=== PATIENT | female | born 1950 | race Caucasian/White ===

== ENCOUNTER 2017-01-08 08:42 | Inpatient (IN) | payer OTHER, MEDICARE ==
[~2017-01-08] VITALS: Ht 165.1 cm; Wt 110.6 kg
[2017-01-08 02:19] VITALS: PULSE 89
[2017-01-08 09:01] VITALS: BP 126/58; PULSE 97; RESP 17; TEMP 98.8; O2SAT 94
[2017-01-08] MEDS ORDERED: LEVO175T2 PO (09:18)
[2017-01-08] MEDS ORDERED: ACTO45TA15 PO (09:18)
[2017-01-08] MEDS ORDERED: SIMV20TA PO (09:18)
[2017-01-08] MEDS ORDERED: GLIP10TA6 PO (09:18)
--- NOTE | 2017-01-08 09:39 | PD ---
HPI . . Chief Complaint: General Weakness Time Seen by Provider: 09:27 Travel History International Travel<30 days: No Contact w/Intl Traveler<30days: No Traveled to known affect area: No History of Present Illness HPI 66 yo f presents to the ED with a cc of weakness. She states that she fell yesterday when trying to go to dialysis. She has a history of ESRD and goes to dialysis T,R,S. She states that her fall yesterday was controlled and she had no head injury or loss of consciousness. She came in to the Ed today because she was unable to get out of her recliner this morning. No CP, SOB. No headache , N/V/D. She does still produce urine and has not noticed burning, frequency or discharge Allergies-Medications (Allergen,Severity, Reaction): Coded Allergies: Penicillins (Verified Allergy, Intermediate, Hives, 01/08/17) Reported Meds & Prescriptions Reported Meds & Active Scripts Active Reported Simvastatin 20 Mg Tab 20 Mg PO DAILY Actos (Pioglitazone HCl) 45 Mg Tab 45 Mg PO DAILY Glipizide 10 Mg Tab 10 Mg PO BIDAC Take 30 minutes before a meal Levothyroxine (Levothyroxine Sodium) 175 Mcg Tab 175 Mcg PO DAILY Review of Systems Except as stated in HPI: all other systems reviewed are Neg HENT: Positive: Lightheadedness Cardiovascular: Positive: Edema Genitourinary: Positive: Urgency, Frequency, Dysuria Musculoskeletal: Positive: Weakness, Edema Neurologic: Positive: Weakness Physical Exam Narrative GENERAL: patient is laying in bed in no acute distress SKIN: Warm and dry. HEAD: Atraumatic. Normocephalic. EYES: Pupils equal and round. No scleral icterus. No injection or drainage. ENT: No nasal bleeding or discharge. Mucous membranes pink and moist. NECK: Trachea midline. No JVD. CARDIOVASCULAR: Regular rate and rhythm. with II/ systolic murmur. 1+ pitting edema bilateral LE RESPIRATORY: No accessory muscle use. Bibasilar rales on auscultation. Breath sounds equal bilaterally. GASTROINTESTINAL: Abdomen soft, non-tender, nondistended. Hepatic and splenic margins not palpable. MUSCULOSKELETAL: Extremities without clubbing, cyanosis, or edema. No obvious deformities. NEUROLOGICAL: Awake and alert. No obvious cranial nerve deficits. Motor grossly within normal limits. Five out of 5 muscle strength in the arms and legs. Normal speech. PSYCHIATRIC: Appropriate mood and affect; insight and judgment normal. Data Data Last Documented VS Vital Signs Date Time Temp Pulse Resp B/P (MAP) Pulse Ox O2 Delivery O2 Flow Rate FiO2 01/08/17 14:15 85 19 136/62 (86) 98 Room Air 01/08/17 09:01 98.8 Orders Orders Complete Blood Count With Diff (01/08/17 09:34) Comprehensive Metabolic Panel (01/08/17 09:34) Chest, Single Ap (01/08/17 ) Electrocardiogram (01/08/17 ) Troponin I (01/08/17 09:34) Ckmb (Isoenzyme) Profile (01/08/17 09:34) Urinalysis - C+S If Indicated (01/08/17 09:34) Coag Profile (01/08/17 09:34) Pelvis, Ap Only (Routine) (01/08/17 ) Diet Diabetic (01/08/17 Lunch) Urine Culture (01/08/17 12:35) Blood Culture (01/08/17 15:11) Ceftriaxone Inj (Rocephin Inj) (01/08/17 15:15) Labs Laboratory Tests Test 01/08/17 09:45 01/08/17 12:35 White Blood Count 10.9 TH/MM3 Red Blood Count 3.43 MIL/MM3 Hemoglobin 10.0 GM/DL Hematocrit 31.3 % Mean Corpuscular Volume 91.2 FL Mean Corpuscular Hemoglobin 29.2 PG Mean Corpuscular Hemoglobin Concent 32.1 % Red Cell Distribution Width 21.2 % Platelet Count 480 TH/MM3 Mean Platelet Volume 7.2 FL Neutrophils (%) (Auto) 81.6 % Lymphocytes (%) (Auto) 8.4 % Monocytes (%) (Auto) 9.3 % Eosinophils (%) (Auto) 0.1 % Basophils (%) (Auto) 0.6 % Neutrophils # (Auto) 8.9 TH/MM3 Lymphocytes # (Auto) 0.9 TH/MM3 Monocytes # (Auto) 1.0 TH/MM3 Eosinophils # (Auto) 0.0 TH/MM3 Basophils # (Auto) 0.1 TH/MM3 CBC Comment DIFF FINAL Differential Comment Prothrombin Time 11.3 SEC Prothromb Time International Ratio 1.0 RATIO Activated Partial Thromboplast Time 31.6 SEC Blood Urea Nitrogen 101 MG/DL Creatinine 6.56 MG/DL Random Glucose 85 MG/DL Total Protein 7.6 GM/DL Albumin 2.1 GM/DL Calcium Level 8.6 MG/DL Alkaline Phosphatase 73 U/L Aspartate Amino Transf (AST/SGOT) 26 U/L Alanine Aminotransferase (ALT/SGPT) 16 U/L Total Bilirubin 0.2 MG/DL Sodium Level 132 MEQ/L Potassium Level 4.7 MEQ/L Chloride Level 102 MEQ/L Carbon Dioxide Level 17.2 MEQ/L Anion Gap 13 MEQ/L Estimat Glomerular Filtration Rate 6 ML/MIN Total Creatine Kinase 41 U/L Troponin I 0.03 NG/ML Urine Color YELLOW Urine Turbidity CLEAR Urine pH 5.5 Urine Specific [place] 1.015 Urine Protein 300 OR GREATER mg/dL Urine Glucose (UA) NEG mg/dL Urine Ketones NEG mg/dL Urine Occult Blood MOD Urine Nitrite NEG Urine Bilirubin NEG Urine Urobilinogen 0.2 MG/DL Urine Leukocyte Esterase LARGE Urine RBC 10-14 /hpf Urine WBC INNUM /hpf Urine WBC Clumps MANY Urine Squamous Epithelial Cells 0-5 /hpf Urine Bacteria RARE /hpf Microscopic Urinalysis Comment CULTURE INDICATED [facility] Medical Decision Making Differential Diagnosis ESRD, T2DM, Possible Electrolyte Abnormality, Weakness Narrative Course CBC, CMP, Cardiac Enzymes, Coags, EKG, CXR, U/A Henry Landers MD Jan 08, 2017 09:39
[2017-01-08 10:17] LABS: AUTOMATED NEUTROPHIL # 8.9 TH/MM3 (1.8-7.7); BASOPHIL # 0.1 TH/MM3 (0-0.2); BASOPHIL % 0.6 % (0.0-2.0); EOSINOPHIL % 0.1 % (0.0-4.0); HEMATOCRIT 31.3 % (35.0-46.0); HEMO FLAGS DIFF FINAL; LYMPH % 8.4 % (9.0-44.0); LYMPHOCYTE # 0.9 TH/MM3 (1.0-4.8); MEAN CELL VOLUME 91.2 FL (80.0-100.0); MEAN CORPUSCULAR HEMOGLOBIN 29.2 PG (27.0-34.0); MEAN CORPUSCULAR HGB CONC 32.1 % (32.0-36.0); MONO % 9.3 % (0.0-8.0); NEUT % 81.6 % (16.0-70.0); PLATELET COUNT 480 TH/MM3 (150-450); RED BLOOD COUNT 3.43 MIL/MM3 (4.00-5.30); RED CELL DISTRIBUTION WIDTH 21.2 % (11.6-17.2); WHITE BLOOD COUNT 10.9 TH/MM3 (4.0-11.0)
[2017-01-08 10:21] LABS: PROTHROMBIN TIME - PATIENT 11.3 SEC (9.8-11.6)
--- NOTE | 2017-01-08 10:22 | RADRPT ---
EXAM DATE/TIME: 01/08/2017 09:49 [facility] COMPARISON: No previous studies available for comparison. INDICATIONS : Weakness and difficulty breathing. MEDICAL HISTORY : Diabetes SURGICAL HISTORY : Port for dialysis ENCOUNTER: Initial ACUITY: 2 days PAIN SCORE: 0/10 LOCATION: Bilateral chest FINDINGS: Dialysis catheter and central venous catheter in good position. There is mild compensated cardiomega ly.. There is no failure. No inflammatory infiltrates. CONCLUSION: Negative for failure or infiltrate. [id number] and dialysis catheter in good posi tion. Freedom Juarez MD FACR on January 08, 2017 at 10:16 Board Certified Radiologist. This report was verified electronically.
[2017-01-08 10:29] LABS: APTT (PATIENT) 31.6 SEC (24.3-30.1)
[2017-01-08 10:49] LABS: ALKALINE PHOSPHATASE 73 U/L (45-117); ALT (GPT) 16 U/L (10-53); ANION GAP 13 MEQ/L (5-15); AST (GOT) 26 U/L (15-37); BICARBONATE 17.2 MEQ/L (21.0-32.0); BLOOD UREA NITROGEN 101 MG/DL (7-18); CHLORIDE 102 MEQ/L (98-107); GLOMERULAR FILTRATION RATE 6 ML/MIN (>89); SODIUM (NA) 132 MEQ/L (136-145); TOTAL BILIRUBIN ADULT 0.2 MG/DL (0.2-1.0)
[2017-01-08 10:51] LABS: CREATINE KINASE 41 U/L (26-192); POTASSIUM 4.7 MEQ/L (3.5-5.1)
--- NOTE | 2017-01-08 12:44 | EKG ---
Date Performed: 01/08/2017 Time Performed: 10:50:12 PTAGE: 66 years EKG: Sinus rhythm MARKED LEFT AXIS DEVIATION POSSIBLE ANTERIOR MYOCARDIAL INFARCTION ABNORMAL ECG NO PREVIOUS TRACING DOCTOR: Johann Aguilar Interpretating Date/Time 01/08/2017 12:43:08
[2017-01-08 13:33] LABS: BLOOD, URINE MOD (NEG); GLUCOSE,URINE NEG (NEG); KETONE, URINE NEG (NEG); NITRITE,URINE NEG (NEG); PH, URINE 5.5 (5.0-8.5); URINE COLOR YELLOW (YELLW/STRAW)
[2017-01-08 13:37] LABS: SQUAMOUS EPITHELIAL CELL URINE 0-5 /hpf (0-5); WBC, URINE INNUM /hpf (0-5)
[2017-01-08 13:38] LABS: BACTERIA, URINE RARE /hpf; COMMENT (UR) CULTURE INDICATED; CULTURE IF INDICATED CULTURE INDICATED
--- NOTE | 2017-01-08 13:59 | RADRPT ---
EXAM DATE/TIME: 01/08/2017 13:00 [facility] COMPARISON: No previous studies available for comparison. INDICATIONS : Pain. Patient complains of pelvic pain. No known trauma. MEDICAL HISTORY : None. SURGICAL HISTORY : None. ENCOUNTER: Initial ACUITY: 3 days PAIN SCORE: 9/10 LOCATION: Bilateral chest FINDINGS: A single frontal view of the pelvis demonstrates no evidence of fracture. The bony pelvic ring is in tact. Bony mineralization is normal. The soft tissues are intact. Right-sided double-J stent with t he distal [place] loop projecting over the expected location of the urinary bladder. Multiple hemoclips in the mid pelvis with a ring of surgical mario projecting over the sacrum possibly related to prio r bowel intervention. CONCLUSION: 1. Post surgical changes of multiple hemoclips in fine surgical mario in the pelvis. Right-sided do uble-J stent. 2. Otherwise negative. No acute fracture. Suleiman Early MD on January 08, 2017 at 13:55 Board Certified Radiologist. This report was verified electronically.
[2017-01-08 14:15] VITALS: BP 136/62; PULSE 85; RESP 19; O2SAT 98
[2017-01-08] MEDS ORDERED: cefTRIAXone INJ 1,000 MG in SODIUM CHLORIDE 0.9% INJ 100 ML IV ONE (15:15)
[2017-01-08] MEDS ORDERED: SODIUM CHLORIDE 0.9% FLUSH 10 ML FLUSH IV FLUSH PRN ×2 (16:00→19:15)
[2017-01-08] MEDS ORDERED: oxyCODONE/ACETAMINOPHEN 10 MG/325 MG TAB PO PRN (16:00)
[2017-01-08] MEDS ORDERED: MORPHINE SULFATE 4 MG/ML INJ IV PUSH PRN ×2 (16:00)
[2017-01-08] MEDS ORDERED: GLUCAGON 1 MG/ML VIAL OTHER PRN (16:00)
[2017-01-08] MEDS ORDERED: NALOXONE HCL 0.4 MG/ML AMP IV PUSH PRN (16:00)
[2017-01-08] MEDS ORDERED: ACETAMINOPHEN 325 MG TAB PO PRN ×3 (16:00→19:15)
[2017-01-08] MEDS ORDERED: MAGNESIUM HYDROXIDE SUSP 30 ML CUP PO PRN (16:00)
[2017-01-08] MEDS ORDERED: SENNOSIDES 8.6 MG TAB PO PRN (16:00)
[2017-01-08] MEDS ORDERED: BISACODYL 10 MG SUPP RECTAL PRN (16:00)
[2017-01-08] MEDS ORDERED: oxyCODONE/ACETAMINOPHEN 5 MG/325 MG TAB PO PRN (16:00)
[2017-01-08] MEDS ORDERED: ONDANSETRON HCL 4 MG/2 ML VIAL IVP PRN (16:00)
[2017-01-08] MEDS ORDERED: DEXTROSE 50% IN WATER 50 ML VIAL(D50) IV PUSH PRN ×2 (16:00→20:45)
[2017-01-08] MEDS ORDERED: LACTULOSE SYRUP 20 GM/30 ML CUP PO PRN (16:00)
[2017-01-08] MEDS ORDERED: PROCHLORPERAZINE 25 MG SUPP RECTAL PRN (16:00)
--- NOTE | 2017-01-08 16:01 | HHI.HP ---
[facility] Unknown Admission Diagnosis ESRD, UTI, WEAKNESS Diagnoses: (1) ESRD (end stage renal disease) on dialysis Diagnosis: Principal (2) UTI (urinary tract infection) Diagnosis: Principal (3) Weakness Diagnosis: Principal (4) Obese Diagnosis: Secondary (5) Hyperlipidemia Diagnosis: Secondary (6) Hypothyroidism Diagnosis: Secondary Chief Complaint: GENERALIZED WEAKNESS Travel History International Travel<30 Days: No Contact w/Intl Traveler <30 Da: No Traveled to Known Affected Are: No History of Present Illness Patient is a 66-year-old female who presents to the emergency department with chief complaint of generalized weakness. Patient states that she fell yesterday while trying to go to dialysis. Therefore she did not go. She has a history of end-stage renal disease and goes to dialysis Friday. She states that because of her fall she did not go to dialysis yesterday. She states that her fall was controlled and she did not hit her head , denies any injury or loss of consciousness. Came to the emergency department today because she was unable to get out of her recliner this morning. Denies any chest pain or shortness of breath, denies any headaches, denies any nausea, vomiting or diarrhea. She still does produce some urine has not noticed any burning frequency or discharge but was found to have a urinary tract infection here in the emergency department Will be admitted we'll consult renal will consult physical therapy and occupational therapy We'll place on Rocephin 1 g IV daily Review of Systems Constitutional: COMPLAINS OF: Fatigue, DENIES: Diaphoretic episodes, Fever, Weight gain, Weight loss, Chills, Dizziness, Change in appetite Endocrine: DENIES: Abnorml menstrual pattern, Heat/cold intolerance Eyes: DENIES: Blurred vision, Diplopia, Eye inflammation Ears, nose, mouth, throat: DENIES: Tinnitus, Hearing loss, Vertigo Respiratory: DENIES: Apneas, Cough, Snoring, Wheezing Cardiovascular: DENIES: Chest pain, Palpitations, Syncope, Dyspnea on Exertion Gastrointestinal: DENIES: Abdominal pain, Black stools, Bloody stools, Anorexia Genitourinary: DENIES: Abnormal vaginal bleeding, Dysmenorrhea, Urgency, Hematuria, Dysuria Musculoskeletal: DENIES: Joint pain, Muscle aches, Stiffness, Joint Swelling Integumentary: DENIES: Abnormal pigmentation, Pruritus, Rash, Nail changes, Breast masses Hematologic/lymphatic: DENIES: Bruising, Lymphadenopathy Immunologic/allergic: DENIES: Eczema, Urticaria Neurologic: COMPLAINS OF: Abnormal gait, Localized weakness, Poor Balance, DENIES: Headache, Paresthesias, Seizures, Speech Problems Psychiatric: DENIES: Anxiety, Confusion, Mood changes, Depression, Hallucinations, Agitation, Suicidal Ideation Past Family Social History Past Medical History Hypercholesterolemia End-stage renal disease on hemodialysis Friday Diabetes mellitus Right sided dialysis catheter History of kidney stents and revisions Past Surgical History Kidney stents and revisions Placement of a dialysis catheter right chest Reported Medications Reported Meds & Active Scripts Active Reported Simvastatin 20 Mg Tab 20 Mg PO DAILY Actos (Pioglitazone HCl) 45 Mg Tab 45 Mg PO DAILY Glipizide 10 Mg Tab 10 Mg PO BIDAC Take 30 minutes before a meal Levothyroxine (Levothyroxine Sodium) 175 Mcg Tab 175 Mcg PO DAILY Allergies: Coded Allergies: Penicillins (Verified Allergy, Intermediate, Hives, 01/08/17) Active Ordered Medications Current Medications Ceftriaxone Sodium 1000 mg/ Sodium Chloride 100 ml @ 200 mls/hr ONCE ONCE IV ; Start 01/08/17 at 15:15; Stop 01/08/17 at 15:44 Family History Diabetes and hypertension Social History Denies any tobacco alcohol or illicits Physical Exam Vital Signs Vital Signs Date Time Temp Pulse Resp B/P (MAP) Pulse Ox O2 Delivery O2 Flow Rate FiO2 01/08/17 14:15 85 19 136/62 (86) 98 Room Air 01/08/17 09:01 98.8 97 17 126/58 (80) 94 Physical Exam GENERAL: This is a well-nourished, well-developed patient, in no apparent distress. SKIN: No rashes, ecchymoses or lesions. Cool and dry. HEAD: Atraumatic. Normocephalic. No temporal or scalp tenderness. EYES: Pupils equal round and reactive. Extraocular motions intact. No scleral icterus. No injection or drainage. ENT: Nose without bleeding, purulent drainage or septal hematoma. Throat without erythema, tonsillar hypertrophy or exudate. Uvula midline. Airway patent. NECK: Trachea midline. No JVD or lymphadenopathy. Supple, nontender, no meningeal signs. CARDIOVASCULAR: Regular rate and rhythm without murmurs, gallops, or rubs. S1 and S2 no S3 or S4 RESPIRATORY:Breath sounds equal bilaterally. No wheezes, rales, or rhonchi. Decreased breath sounds bilaterally GASTROINTESTINAL: Abdomen soft, non-tender, nondistended. No hepato-splenomegaly , or palpable masses. No guarding. MUSCULOSKELETAL: Extremities without clubbing, cyanosis, edema bilateral lower extremities is 2-3. No joint tenderness, effusion, or edema noted. No calf tenderness. Negative Homans sign bilaterally. NEUROLOGICAL: Awake and alert. Cranial nerves II through XII intact. Motor and sensory grossly within normal limits. 4 out of 5 muscle strength in all muscle groups. Normal speech. Insight and judgment is poor Mood and behaviors appropriate Laboratory Laboratory Tests Test 01/08/17 09:45 01/08/17 12:35 White Blood Count 10.9 Red Blood Count 3.43 Hemoglobin 10.0 Hematocrit 31.3 Mean Corpuscular Volume 91.2 Mean Corpuscular Hemoglobin 29.2 Mean Corpuscular Hemoglobin Concent 32.1 Red Cell Distribution Width 21.2 Platelet Count 480 Mean Platelet Volume 7.2 Neutrophils (%) (Auto) 81.6 Lymphocytes (%) (Auto) 8.4 Monocytes (%) (Auto) 9.3 Eosinophils (%) (Auto) 0.1 Basophils (%) (Auto) 0.6 Neutrophils # (Auto) 8.9 Lymphocytes # (Auto) 0.9 Monocytes # (Auto) 1.0 Eosinophils # (Auto) 0.0 Basophils # (Auto) 0.1 CBC Comment DIFF FINAL Differential Comment Prothrombin Time 11.3 Prothromb Time International Ratio 1.0 Activated Partial Thromboplast Time 31.6 Blood Urea Nitrogen 101 Creatinine 6.56 Random Glucose 85 Total Protein 7.6 Albumin 2.1 Calcium Level 8.6 Alkaline Phosphatase 73 Aspartate Amino Transf (AST/SGOT) 26 Alanine Aminotransferase (ALT/SGPT) 16 Total Bilirubin 0.2 Sodium Level 132 Potassium Level 4.7 Chloride Level 102 Carbon Dioxide Level 17.2 Anion Gap 13 Estimat Glomerular Filtration Rate 6 Total Creatine Kinase 41 Troponin I 0.03 Urine Color YELLOW Urine Turbidity CLEAR Urine pH 5.5 Urine Specific [place] 1.015 Urine Protein 300 OR GREATER Urine Glucose (UA) NEG Urine Ketones NEG Urine Occult Blood MOD Urine Nitrite NEG Urine Bilirubin NEG Urine Urobilinogen 0.2 Urine Leukocyte Esterase LARGE Urine RBC 10-14 Urine WBC INNUM Urine WBC Clumps MANY Urine Squamous Epithelial Cells 0-5 Urine Bacteria RARE Microscopic Urinalysis Comment CULTURE INDICATED Date/Time Source Procedure Growth Status 01/08/17 12:35 Urine Clean Catch Urine Culture Pending Received Result Diagram: 01/08/17 0945 01/08/17 0945 Imaging Last Impressions Pelvis X-Ray 01/08/17 0000 Signed Impressions: Service Date/Time: Sunday, January 08, 2017 13:00 - CONCLUSION: 1. Post surgical changes of multiple hemoclips in fine surgical mario in the pelvis. Right-sided double-J stent. 2. Otherwise negative. No acute fracture. Suleiman Early MD Chest X-Ray 01/08/17 0000 Signed Impressions: Service Date/Time: Sunday, January 08, 2017 09:49 - CONCLUSION: Negative for failure or infiltrate. [id number] and dialysis catheter in good position. Freedom Juarez MD FACR Caprini VTE Risk Assessment Caprini VTE Risk Assessment: Mod/High Risk (score >= 2) Caprini Risk Assessment Model Point Value = 1 Point Value = 2 Point Value = 3 Point Value = 5 Age 41-60 Minor surgery BMI > 25 kg/m2 Swollen legs Varicose veins or History of unexplained or recurrent spontaneous Oral contraceptives or hormone replacement Sepsis (< 1 month) Serious lung disease, including pneumonia (< 1 month) Abnormal pulmonary function Acute myocardial infarction Congestive heart failure (< 1 month) History of inflammatory bowel disease Medical patient at bed rest Age 61-74 Arthroscopic surgery Major open surgery (> 45 min) Laparoscopic surgery (> 45 min) Malignancy Confined to bed (> 72 hours) Immobilizing plaster cast Central venous access Age >= 75 History of VTE Family history of VTE Factor V Leiden Prothrombin [id number] Lupus anticoagulant Anticardiolipin antibodies Elevated serum homocysteine Heparin-induced thrombocytopenia Other congenital or acquired thrombophilia Stroke (< 1 month) Elective arthroplasty Hip, pelvis, or leg fracture Acute spinal cord injury (< 1 month) Prophylaxis Regimen Total Risk Factor Score Risk Level Prophylaxis Regimen 0-1 Low Early ambulation 2 Moderate Order ONE of the following: *Sequential Compression Device (SCD) *Heparin 5000 units SQ BID 3-4 Higher Order ONE of the following medications: *Heparin 5000 units SQ TID *Enoxaparin/Lovenox 40 mg SQ daily (WT < 150 kg, CrCl > 30 mL/min) *Enoxaparin/Lovenox 30 mg SQ daily (WT < 150 kg, CrCl > 10-29 mL/min) *Enoxaparin/Lovenox 30 mg SQ BID (WT < 150 kg, CrCl > 30 mL/min) AND/OR *Sequential Compression Device (SCD) 5 or more Highest Order ONE of the following medications: *Heparin 5000 units SQ TID (Preferred with Epidurals) *Enoxaparin/Lovenox 40 mg SQ daily (WT < 150 kg, CrCl > 30 mL/min) *Enoxaparin/Lovenox 30 mg SQ daily (WT < 150 kg, CrCl > 10-29 mL/min) *Enoxaparin/Lovenox 30 mg SQ BID (WT < 150 kg, CrCl > 30 mL/min) AND *Sequential Compression Device (SCD) Assessment and Plan Assessment and Plan End-stage renal disease with dialysis on Friday and Friday with last dialysis Friday today being Friday Consult nephrology for dialysis Fluid restrict Generalized weakness we will ask physical therapy and occupational therapy to eval and treat Diabetes mellitus continue on sliding scale coverage with Accu-Cheks before meals and at bedtime continue home medications Hypothyroidism continue on Synthroid check his TSH and a free T4 Obesity weight loss recommended Urinary tract infection continue on Rocephin Case management regarding discharge planning Continue on Pepcid for GI prophylaxis and heparin for DVT prophylaxis Code Status Full code Discussed Condition With ER physician and RN and patient Physician Certification 2 Midnight Certification Type: Admission for Inpatient Services Order for Inpatient Services The services are ordered in accordance with Medicare regulations or non- Medicare payer requirements, as applicable. In the case of services not specified as inpatient-only, they are appropriately provided as inpatient services in accordance with the 2-midnight benchmark. Estimated LOS (days): 3 3 days is the estimated time the patient will need to remain in the hospital, assuming treatment plan goals are met and no additional complications. Post-Hospital Plan: Not yet determined Freedom Santamaria DO Jan 08, 2017 16:01
[2017-01-08] MEDS: HEPARIN SODIUM - SQ 10,000 UNITS/ML VIAL SQ SCH (16:35)
[2017-01-08] MEDS: glipiZIDE 10 MG TAB PO SCH (16:35)
[2017-01-08] MEDS: INSULIN ASPART SUPPLEMENTAL SCALE SQ SCH ×2 (16:36→21:00)
[2017-01-08 17:00] VITALS: BP 146/64; PULSE 84; RESP 25; O2SAT 95
--- NOTE | 2017-01-08 19:10 | PD.CONS ---
HPI Service Nephrology Consult Requested By Dr. Santamaria Reason for Consult ESRD management Primary Care Physician Unknown History of Present Illness Patient is a 66-year-old female with history of diabetes, end-stage renal disease on hemodialysis she has a left arm AV fistula which is not being used and currently has a permacath on the right side of the chest, patient states that she missed her dialysis on Friday and she could not get into the car and today she could not move out of the chair and has to come to the hospital, she is Friday, and Friday patient and follow with Dr. Giron. She is a patient at [facility] dialysis unit. Review of Systems Constitutional: COMPLAINS OF: Fatigue Respiratory: COMPLAINS OF: Shortness of breath Cardiovascular: COMPLAINS OF: Lower Extremity Edema Musculoskeletal: COMPLAINS OF: Joint pain, Muscle aches, Joint Swelling, Back pain Neurologic: COMPLAINS OF: Abnormal gait Psychiatric: COMPLAINS OF: Depression Past Family Social History Allergies: Coded Allergies: Penicillins (Verified Allergy, Intermediate, Hives, 01/08/17) Past Medical History Morbid obesity Diabetes Hypertension ESRD Anemia Hyperlipidemia Hypothyroidism Past Surgical History Kidney stents and revisions Placement of a dialysis catheter right chest Reported Medications Reported Meds & Active Scripts Active Reported Simvastatin 20 Mg Tab 20 Mg PO DAILY Actos (Pioglitazone HCl) 45 Mg Tab 45 Mg PO DAILY Glipizide 10 Mg Tab 10 Mg PO BIDAC Take 30 minutes before a meal Levothyroxine (Levothyroxine Sodium) 175 Mcg Tab 175 Mcg PO DAILY Active Ordered Medications Current Medications Medications (Trade) Dose Ordered Sig/Alex Route Start Time Stop Time Status Last Admin (Glucotrol) 10 mg BIDAC PO 01/08/17 16:00 01/08/17 16:35 (Actos) 45 mg DAILY PO 01/09/17 09:00 (Synthroid) 75 mcg DAILY@0600 PO 01/09/17 06:00 (Pravachol) 40 mg DAILY PO 01/09/17 09:00 (D50w (Vial) Inj) 50 ml UNSCH PRN IV PUSH 01/08/17 16:00 (Glucagon Inj) 1 mg UNSCH PRN OTHER 01/08/17 16:00 (NovoLOG SUPPLEMENTAL SCALE) 1 ACHS SLIDING SCALE SQ 01/08/17 17:00 (Synthroid) 100 mcg DAILY@0600 PO 01/09/17 06:00 (NS Flush) 2 ml UNSCH PRN IV FLUSH 01/08/17 16:00 (NS Flush) 2 ml BID IV FLUSH 01/08/17 21:00 (Tylenol) 650 mg Q4H PRN PO 01/08/17 16:00 (Zofran Inj) 4 mg Q6H PRN IVP 01/08/17 16:00 (Compazine Supp) 25 mg Q12H PRN RECTAL 01/08/17 16:00 (Heparin Inj) 5,000 units Q12H SQ 01/08/17 16:00 01/08/17 16:35 (Tylenol) 650 mg Q6H PRN PO 01/08/17 16:00 (Percocet 5-325 Mg) 1 tab Q6H PRN PO 01/08/17 16:00 (Percocet 10-325 Mg) 1 tab Q6H PRN PO 01/08/17 16:00 (Morphine Inj) 2 mg Q3H PRN IV PUSH 01/08/17 16:00 (Morphine Inj) 4 mg Q3H PRN IV PUSH 01/08/17 16:00 (Narcan Inj) 0.4 mg UNSCH PRN IV PUSH 01/08/17 16:00 (Keyonna-Colace) 1 tab BID PO 01/08/17 21:00 (Milk Of Magnesia Liq) 30 ml Q12H PRN PO 01/08/17 16:00 (Senokot) 17.2 mg Q12H PRN PO 01/08/17 16:00 (Dulcolax Supp) 10 mg DAILY PRN RECTAL 01/08/17 16:00 (Lactulose Liq) 30 ml DAILY PRN PO 01/08/17 16:00 Ceftriaxone Sodium 1000 mg/ Sodium Chloride 100 ml @ 200 mls/hr Q24H IV 01/09/17 14:00 Family History Noncontributory Social History He denies smoking or alcohol use Physical Exam Vital Signs Vital Signs Date Time Temp Pulse Resp B/P (MAP) Pulse Ox O2 Delivery O2 Flow Rate FiO2 01/08/17 17:00 84 25 146/64 (91) 95 Room Air 01/08/17 14:15 85 19 136/62 (86) 98 Room Air 01/08/17 09:01 98.8 97 17 126/58 (80) 94 Physical Exam GENERAL: Well-nourished, well-developed patient. SKIN: Warm and dry. HEAD: Normocephalic. EYES: No scleral icterus. No injection or drainage. NECK: Supple, trachea midline. No JVD or lymphadenopathy. CARDIOVASCULAR: Regular rate and rhythm without murmurs, gallops, or rubs. Right side permacath RESPIRATORY: Breath sounds diminished at bases GASTROINTESTINAL: Abdomen soft, non-tender, nondistended. EXTREMITIES: No cyanosis, mild edema. NEUROLOGICAL: Awake, alert, and oriented x 3. Non-focal. Laboratory Laboratory Tests Test 01/08/17 09:45 01/08/17 12:35 01/08/17 17:35 White Blood Count 10.9 Red Blood Count 3.43 Hemoglobin 10.0 Hematocrit 31.3 Mean Corpuscular Volume 91.2 Mean Corpuscular Hemoglobin 29.2 Mean Corpuscular Hemoglobin Concent 32.1 Red Cell Distribution Width 21.2 Platelet Count 480 Mean Platelet Volume 7.2 Neutrophils (%) (Auto) 81.6 Lymphocytes (%) (Auto) 8.4 Monocytes (%) (Auto) 9.3 Eosinophils (%) (Auto) 0.1 Basophils (%) (Auto) 0.6 Neutrophils # (Auto) 8.9 Lymphocytes # (Auto) 0.9 Monocytes # (Auto) 1.0 Eosinophils # (Auto) 0.0 Basophils # (Auto) 0.1 CBC Comment DIFF FINAL Differential Comment Prothrombin Time 11.3 Prothromb Time International Ratio 1.0 Activated Partial Thromboplast Time 31.6 Blood Urea Nitrogen 101 Creatinine 6.56 Random Glucose 85 Total Protein 7.6 Albumin 2.1 Calcium Level 8.6 Alkaline Phosphatase 73 Aspartate Amino Transf (AST/SGOT) 26 Alanine Aminotransferase (ALT/SGPT) 16 Total Bilirubin 0.2 Sodium Level 132 Potassium Level 4.7 Chloride Level 102 Carbon Dioxide Level 17.2 Anion Gap 13 Estimat Glomerular Filtration Rate 6 Total Creatine Kinase 41 25 Troponin I 0.03 0.02 Urine Color YELLOW Urine Turbidity CLEAR Urine pH 5.5 Urine Specific Seaman 1.015 Urine Protein 300 OR GREATER Urine Glucose (UA) NEG Urine Ketones NEG Urine Occult Blood MOD Urine Nitrite NEG Urine Bilirubin NEG Urine Urobilinogen 0.2 Urine Leukocyte Esterase LARGE Urine RBC 10-14 Urine WBC INNUM Urine WBC Clumps MANY Urine Squamous Epithelial Cells 0-5 Urine Bacteria RARE Microscopic Urinalysis Comment CULTURE INDICATED Date/Time Source Procedure Growth Status 01/08/17 15:55 Blood Peripheral Aerobic Blood Culture Pending Received 01/08/17 15:55 Blood Peripheral Anaerobic Blood Culture Pending Received 01/08/17 12:35 Urine Clean Catch Urine Culture Pending Received Result Diagram: 01/08/17 0945 01/08/17 0945 Imaging Last Impressions Pelvis X-Ray 01/08/17 0000 Signed Impressions: Service Date/Time: Sunday, January 08, 2017 13:00 - CONCLUSION: 1. Post surgical changes of multiple hemoclips in fine surgical mario in the pelvis. Right-sided double-J stent. 2. Otherwise negative. No acute fracture. Suleiman Early MD Chest X-Ray 01/08/17 0000 Signed Impressions: Service Date/Time: Sunday, January 08, 2017 09:49 - CONCLUSION: Negative for failure or infiltrate. [id number] and dialysis catheter in good position. Freedom Juarez MD FACR Assessment and Plan Problem List: (1) ESRD (end stage renal disease) on dialysis ICD Codes: N18.6 - End stage renal disease; Z99.2 - Dependence on renal dialysis Plan: Patient is weak and could not make it to dialysis yesterday, she is admitted at [facility] I will arrange for hemodialysis for tomorrow Continue supportive care IV ceftriaxone (2) Diabetes ICD Codes: E11.9 - Type 2 diabetes mellitus without complications Plan: Monitor blood glucose (3) UTI (urinary tract infection) ICD Codes: N39.0 - Urinary tract infection, site not specified Plan: Follow urine cultures (4) Weakness ICD Codes: R53.1 - Weakness Plan: Continue to monitor Problem Qualifiers (1) Diabetes: Bree Villasenor MD Jan 08, 2017 19:10
[2017-01-08] MEDS ORDERED: SODIUM CHLOR 0.9% 1000 ML INJ 1,000 ML IV PRN (19:11)
[2017-01-08] MEDS ORDERED: SODIUM CHLOR 0.9% 1000 ML INJ 1,000 ML OTHER PRN ×2 (19:11)
[2017-01-08] MEDS ORDERED: diphenhydrAMINE HCL 25 MG CAP PO PRN (19:15)
[2017-01-08] MEDS ORDERED: MANNITOL 12.5 GM/50 ML VIAL IV PRN (19:15)
[2017-01-08] MEDS ORDERED: GELATIN 12 MM/7 MM FOAM TOP PRN (19:15)
[2017-01-08] MEDS ORDERED: ONDANSETRON HCL 4 MG/2 ML VIAL IV PUSH PRN (19:15)
[2017-01-08] MEDS ORDERED: HEPARIN SODIUM - IV 10,000 UNITS/10 ML VIAL IV FLUSH PRN (19:15)
[2017-01-08] MEDS ORDERED: ALBUMIN 25% INJ 100 ML IV PRN (19:15)
[2017-01-08] MEDS ORDERED: NITROGLYCERIN 0.4 MG SL 25 TABS/BTL SL PRN (19:15)
[2017-01-08] MEDS ORDERED: cloNIDine HCL 0.1 MG TAB PO PRN (19:15)
[2017-01-08 20:30] VITALS: BP 138/71; PULSE 83; RESP 18; TEMP 97.9; O2SAT 99
[2017-01-08] MEDS ORDERED: GLUCAGON 1 MG/ML VIAL IM PRN (20:45)
[2017-01-08] MEDS: DOCUSATE SODIUM 50 MG/SENNA 8.6 MG TAB PO SCH (21:16)
[2017-01-08] MEDS: SODIUM CHLORIDE 0.9% FLUSH 10 ML FLUSH IV FLUSH SCH (21:16)
[2017-01-08] MEDS: DEXTROSE 50% IN WATER 50 ML VIAL(D50) IV PUSH PRN ×2 (22:56→23:18)
[2017-01-09] VITALS (10 sets, daily range): BP systolic 115–172; BP diastolic 58–75; PULSE 80–97; RESP 18–20; TEMP 97.5–99.3; O2SAT 95–98
[2017-01-09] MEDS: HEPARIN SODIUM - SQ 10,000 UNITS/ML VIAL SQ SCH ×2 (05:26→16:04)
[2017-01-09] MEDS: LEVOTHYROXINE SODIUM 100 MCG TAB PO SCH (05:27)
[2017-01-09] MEDS: LEVOTHYROXINE SODIUM 75 MCG TAB PO SCH (05:27)
[2017-01-09 06:07] LABS: BASOPHIL # 0.1 TH/MM3 (0-0.2); BASOPHIL % 0.5 % (0.0-2.0); EOSINOPHIL % 0.1 % (0.0-4.0); HEMATOCRIT 28.8 % (35.0-46.0); HEMO FLAGS DIFF FINAL; LYMPHOCYTE # 0.9 TH/MM3 (1.0-4.8); MEAN CELL VOLUME 90.9 FL (80.0-100.0); MEAN CORPUSCULAR HEMOGLOBIN 28.6 PG (27.0-34.0); MEAN CORPUSCULAR HGB CONC 31.4 % (32.0-36.0); MONO % 9.9 % (0.0-8.0); NEUT % 81.5 % (16.0-70.0); PLATELET COUNT 483 TH/MM3 (150-450); RED BLOOD COUNT 3.17 MIL/MM3 (4.00-5.30); RED CELL DISTRIBUTION WIDTH 20.8 % (11.6-17.2); WHITE BLOOD COUNT 11.1 TH/MM3 (4.0-11.0)
[2017-01-09 07:41] LABS: ALKALINE PHOSPHATASE 70 U/L (45-117); ALT (GPT) 30 U/L (10-53); ANION GAP 15 MEQ/L (5-15); AST (GOT) 36 U/L (15-37); BICARBONATE 16.5 MEQ/L (21.0-32.0); CHLORIDE 102 MEQ/L (98-107); FREE T4 1.41 NG/DL (0.76-1.46); GLOMERULAR FILTRATION RATE 6 ML/MIN (>89); MAGNESIUM 2.1 MG/DL (1.5-2.5); POTASSIUM 4.9 MEQ/L (3.5-5.1); SODIUM (NA) 133 MEQ/L (136-145); TOTAL BILIRUBIN ADULT 0.2 MG/DL (0.2-1.0)
[2017-01-09 07:45] LABS: BLOOD UREA NITROGEN 108 MG/DL (7-18)
[2017-01-09] MEDS: INSULIN ASPART SUPPLEMENTAL SCALE SQ SCH ×4 (08:00→21:00)
[2017-01-09] MEDS: glipiZIDE 10 MG TAB PO SCH ×2 (08:03→17:21)
[2017-01-09] MEDS: PIOGLITAZONE HCL 45 MG TAB PO SCH (08:03)
[2017-01-09] MEDS: PRAVASTATIN SOD 40 MG TAB PO SCH (08:04)
[2017-01-09] MEDS: SODIUM CHLORIDE 0.9% FLUSH 10 ML FLUSH IV FLUSH SCH ×2 (08:04→21:00)
[2017-01-09] MEDS: DOCUSATE SODIUM 50 MG/SENNA 8.6 MG TAB PO SCH ×2 (08:04→21:00)
[2017-01-09] MEDS: GENTAMICIN SULFATE (DIALYSIS USE ONLY) 20 MG/2 ML VIAL OTHER PRN (11:34)
[2017-01-09] MEDS: HEPARIN SODIUM - IV 10,000 UNITS/10 ML VIAL PRN (11:35)
[2017-01-09] MEDS: EPOETIN ALFA 10,000 UNITS/ML VIAL IV PUSH PRN (11:36)
--- NOTE | 2017-01-09 11:41 | HHI.NPPN ---
Subjective History of Present Illness 66 year old female with UTI ESRD weakness Review of Systems General Constitutional: Fatigue Objective Data Data Vital Signs Date Time Temp Pulse Resp B/P (MAP) Pulse Ox O2 Delivery O2 Flow Rate FiO2 01/09/17 08:00 97.5 87 20 122/59 (80) 98 01/09/17 05:00 98.8 97 18 150/65 (93) 98 01/09/17 02:35 96 01/09/17 00:30 97.9 89 18 172/75 (107) 98 01/08/17 20:30 97.9 83 18 138/71 (93) 99 01/08/17 19:11 01/08/17 17:00 84 25 146/64 (91) 95 Room Air 01/08/17 14:15 85 19 136/62 (86) 98 Room Air -: 01/09/17 0648 01/09/17 0900 Microbiology 01/08/17 Aerobic Blood Culture - Preliminary, Resulted NO GROWTH IN 1 DAY 01/08/17 Anaerobic Blood Culture - Preliminary, Resulted NO GROWTH IN 1 DAY 01/08/17 Aerobic Blood Culture - Preliminary, Resulted NO GROWTH IN 1 DAY 01/08/17 Anaerobic Blood Culture - Preliminary, Resulted NO GROWTH IN 1 DAY 01/08/17 Urine Culture, Received Pending Physical Exam General Appearance: Well Developed Neck Neck Exam: Neck Supple Pulmonary Resp Exam: Clear Bilaterally, Breath Sounds Equal Cardiology CV Exam: Regular Gastrointestinal/Abdomen GI Exam: Soft, Non-Tender, Bowel Sounds Present Extremeties Extremities Exam: Trace Edema Neurologic Neuro Exam: Alert Assessment/Plan Problem List: (1) ESRD (end stage renal disease) on dialysis ICD Codes: N18.6 - End stage renal disease; Z99.2 - Dependence on renal dialysis Plan: Patient is weak and could not make it to dialysis yesterday, she is admitted at [place] seen at dialysis UF 3 L tolerating it IV ceftriaxone (2) Diabetes ICD Codes: E11.9 - Type 2 diabetes mellitus without complications Plan: Monitor blood glucose (3) UTI (urinary tract infection) ICD Codes: N39.0 - Urinary tract infection, site not specified Plan: Follow urine cultures (4) Weakness ICD Codes: R53.1 - Weakness Plan: Continue to monitor Problem Qualifiers (1) Diabetes: Bree Villasenor MD Jan 09, 2017 11:41
[2017-01-09] MEDS: cefTRIAXone INJ 1,000 MG in SODIUM CHLORIDE 0.9% INJ 100 ML IV SCH (14:00)
--- NOTE | 2017-01-09 14:47 | HHI.PR ---
Subjective Remarks Patient is seen after dialysis. She is still very weak. States she is too weak to work with physical therapy today. Discussed with patient and at bedside. Her adamantly refused SNF placement if needed. States they will take the patient home and care for her at home. Objective Vitals Vital Signs Date Time Temp Pulse Resp B/P (MAP) Pulse Ox O2 Delivery O2 Flow Rate FiO2 01/09/17 08:00 97.5 87 20 122/59 (80) 98 01/09/17 05:00 98.8 97 18 150/65 (93) 98 01/09/17 02:35 96 01/09/17 00:30 97.9 89 18 172/75 (107) 98 01/08/17 20:30 97.9 83 18 138/71 (93) 99 01/08/17 19:11 01/08/17 17:00 84 25 146/64 (91) 95 Room Air I/O 01/08/17 01/08/17 01/08/17 01/09/17 01/09/17 01/09/17 07:00 15:00 23:00 07:00 15:00 23:00 Intake Total 240 ml 120 ml Output Total 3000 ml Balance 240 ml 120 ml -3000 ml Intake Oral 240 ml 120 ml Output Hemodialysis 3000 ml # Voids 1 Result Diagram: 01/09/17 0648 01/09/17 0900 Imaging Last Impressions Pelvis X-Ray 01/08/17 0000 Signed Impressions: Service Date/Time: Sunday, January 08, 2017 13:00 - CONCLUSION: 1. Post surgical changes of multiple hemoclips in fine surgical mario in the pelvis. Right-sided double-J stent. 2. Otherwise negative. No acute fracture. Suleiman Early MD Chest X-Ray 01/08/17 0000 Signed Impressions: Service Date/Time: Sunday, January 08, 2017 09:49 - CONCLUSION: Negative for failure or infiltrate. Rftsth-p-Srci and dialysis catheter in good position. Freedom Juarez MD FACR Objective Remarks GENERAL: Morbidly obese female, appears uncomfortable in a week CARDIOVASCULAR: Normal rate and regular rhythm without murmurs, gallops, or rubs. RESPIRATORY: Good respiratory efforts. Breath sounds equal and clear to auscultation bilaterally. GASTROINTESTINAL: Abdomen soft, non-tender, non-distended. Normal active bowel sounds MUSCULOSKELETAL: Extremities without cyanosis, or edema. NEURO: Alert & Oriented x4 to person, place, time, situation. Moves all ext x4 PSYCH: Appropriate mood and affect. A/P Problem List: (1) ESRD (end stage renal disease) on dialysis ICD Code: N18.6 - End stage renal disease; Z99.2 - Dependence on renal dialysis (2) UTI (urinary tract infection) ICD Code: N39.0 - Urinary tract infection, site not specified (3) Weakness ICD Code: R53.1 - Weakness (4) Obese ICD Code: E66.9 - Obesity, unspecified (5) Hyperlipidemia ICD Code: E78.5 - Hyperlipidemia, unspecified (6) Hypothyroidism ICD Code: E03.9 - Hypothyroidism, unspecified Assessment and Plan 66-year-old female presented with worsening generalized weakness and UTI: End-stage renal disease on HD dialysis on Friday, , and Friday - Nephrology following - Continue hemodialysis Generalized weakness: This may be related to UTI and the patient missing dialysis. She does seem overall very physically deconditioned. Physical therapy recommended SNF. 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 He did request home health with physical therapy. Urinary tract infection -continue on Rocephin - Follow cultures Diabetes mellitus continue on sliding scale coverage with Accu-Cheks before meals and at bedtime continue home medications Hypothyroidism - On Synthroid. TSH okay Morbid obesity: We discussed benefits of weight loss with the patient. Continue on Pepcid for GI prophylaxis and heparin for DVT prophylaxis Discharge Planning Would benefit from rehabilitation but family requested home with home health. Ubaldo Mcmullen MD Jan 09, 2017 14:47
--- NOTE | 2017-01-09 16:24 | EKG ---
Date Performed: 01/08/2017 Time Performed: 17:10:04 PTAGE: 66 years EKG: Sinus rhythm MARKED LEFT AXIS DEVIATION POSSIBLE ANTERIOR MYOCARDIAL INFARCTION ABNORMAL ECG Since PREVIOUS TRACING , no significant change noted PREVIOUS TRACIN01/08/2017 10.50 DOCTOR: Vince Price Interpretating Date/Time 01/09/2017 16:23:59
--- NOTE | 2017-01-09 16:25 | EKG ---
Date Performed: 01/08/2017 Time Performed: 22:31:07 PTAGE: 66 years EKG: Sinus rhythm MARKED LEFT AXIS DEVIATION POSSIBLE ANTERIOR MYOCARDIAL INFARCTION , OF INDETERMINATE AGE ABNORMAL E CG Since PREVIOUS TRACING , no significant change noted PREVIOUS TRACIN01/08/2017 17.10 DOCTOR: Vince Price Interpretating Date/Time 01/09/2017 16:24:14
[2017-01-09 17:27] LABS: HEMOGLOBIN A1a 1.4 %; HEMOGLOBIN A1b 0.8 %; HEMOGLOBIN Ao 83.5 %; HEMOGLOBIN F 1.7 %; HEMOGLOBIN LA1C 1.8 %; HEMOGLOBIN P3 5.8 %
[2017-01-10] VITALS (9 sets, daily range): BP systolic 130–161; BP diastolic 56–71; PULSE 80–88; RESP 18–20; TEMP 97.3–98.2; O2SAT 95–99
[2017-01-10] MEDS: DEXTROSE 50% IN WATER 50 ML VIAL(D50) IV PUSH PRN (05:34)
[2017-01-10] MEDS: LEVOTHYROXINE SODIUM 75 MCG TAB PO SCH (05:43)
[2017-01-10] MEDS: LEVOTHYROXINE SODIUM 100 MCG TAB PO SCH (05:43)
[2017-01-10] MEDS: HEPARIN SODIUM - SQ 10,000 UNITS/ML VIAL SQ SCH ×2 (05:47→16:00)
[2017-01-10] MEDS: glipiZIDE 10 MG TAB PO SCH (06:21)
[2017-01-10] MEDS: INSULIN ASPART SUPPLEMENTAL SCALE SQ SCH ×4 (08:00→21:00)
[2017-01-10] MEDS: DOCUSATE SODIUM 50 MG/SENNA 8.6 MG TAB PO SCH ×3 (08:36→21:35)
[2017-01-10] MEDS: PRAVASTATIN SOD 40 MG TAB PO SCH (08:36)
[2017-01-10] MEDS: PIOGLITAZONE HCL 45 MG TAB PO SCH (08:36)
[2017-01-10] MEDS: SODIUM CHLORIDE 0.9% FLUSH 10 ML FLUSH IV FLUSH SCH ×2 (08:37→21:00)
--- NOTE | 2017-01-10 11:15 | HHI.FF ---
Face to Face Verification Diagnosis: (1) Debility (2) ESRD (end stage renal disease) on dialysis (3) UTI (urinary tract infection) (4) Diabetes (5) Hypothyroidism (6) Hyperlipidemia (7) Obese Home Health Nursing Order: Medical education Signs/symptoms of disease process Diabetic education Nursing assessment with vital signs I have seen patient Isabel Nelson on 01/10/17. My clinical findings support the need for the requested home health care services because: Ltd mobility - disease progression Deconditioned w/ increased weakness Limited ability to care for self Need for psychosocial assistance High risk of falls I certify that my clinical findings support that this patient is homebound because: Unsteady gait/balance Need for psychosocial assistance Ubaldo Mcmullen MD Jan 10, 2017 11:15
--- NOTE | 2017-01-10 11:51 | HHI.PR ---
Subjective Remarks Patient reports ongoing hip pain. DW with her at bedside. He does not want the patient placed at a SNF. He wants her to come home tomorrow. Objective Vitals Vital Signs Date Time Temp Pulse Resp B/P (MAP) Pulse Ox O2 Delivery O2 Flow Rate FiO2 01/10/17 11:45 97.8 80 20 134/71 (92) 95 01/10/17 10:11 80 01/10/17 08:35 97.3 80 18 130/56 (80) 99 01/10/17 05:53 98.0 88 18 132/63 (86) 98 01/10/17 00:15 98.2 80 18 143/63 (89) 98 01/09/17 23:00 92 01/09/17 21:25 95 01/09/17 20:51 97.7 81 18 115/58 (77) 95 01/09/17 20:00 80 01/09/17 19:26 90 01/09/17 16:00 99.3 88 20 138/60 (86) 95 I/O 01/09/17 01/09/17 01/09/17 01/10/17 01/10/17 01/10/17 07:00 15:00 23:00 07:00 15:00 23:00 Intake Total 120 ml Output Total 3000 ml Balance 120 ml -3000 ml Intake Oral 120 ml Output Hemodialysis 3000 ml Result Diagram: 01/09/17 0648 01/10/17 0557 Objective Remarks GENERAL: Morbidly obese female, very weak CARDIOVASCULAR: Normal rate and regular rhythm without murmurs, gallops, or rubs. RESPIRATORY: Good respiratory efforts. Breath sounds equal and clear to auscultation bilaterally. GASTROINTESTINAL: Abdomen soft, non-tender, non-distended. Normal active bowel sounds MUSCULOSKELETAL: Extremities without cyanosis, or edema. NEURO: Alert & Oriented x4 to person, place, time, situation. Moves all ext x4 PSYCH: Appropriate mood and affect. A/P Problem List: (1) ESRD (end stage renal disease) on dialysis ICD Code: N18.6 - End stage renal disease; Z99.2 - Dependence on renal dialysis (2) UTI (urinary tract infection) ICD Code: N39.0 - Urinary tract infection, site not specified (3) Weakness ICD Code: R53.1 - Weakness (4) Obese ICD Code: E66.9 - Obesity, unspecified (5) Hyperlipidemia ICD Code: E78.5 - Hyperlipidemia, unspecified (6) Hypothyroidism ICD Code: E03.9 - Hypothyroidism, unspecified Assessment and Plan 66-year-old female presented with worsening generalized weakness and UTI: End-stage renal disease on HD dialysis on Friday, , and Friday - Nephrology following - Continue hemodialysis Generalized weakness: It appears this has been ongoing and has gotten worse. This may be related to UTI and the patient missing dialysis. Physical therapy recommended SNF. 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 He did request home health with physical therapy. Plan for discharge home tomorrow with home health and physical therapy. Urinary tract infection -Urine is growing Klebsiella and strep viridans. -Continue Rocephin. Plan to discharge home on cefuroxime to complete the course of treatment. Diabetes mellitus continue on sliding scale coverage with Accu-Cheks before meals and at bedtime continue home medications Osteoarthritis of the right hip: Patient advised to follow up outpatient with orthopedics. She was counseled on weight loss. Pain medication as needed. Hypothyroidism - On Synthroid. TSH okay Morbid obesity: We discussed benefits of weight loss with the patient. Continue on Pepcid for GI prophylaxis and heparin for DVT prophylaxis Discharge Planning Plan for discharge to home with home health care tomorrow. Ubaldo Mcmullen MD Jan 10, 2017 11:51
[2017-01-10] MEDS: cefTRIAXone INJ 1,000 MG in SODIUM CHLORIDE 0.9% INJ 100 ML IV SCH (13:52)
--- NOTE | 2017-01-10 16:05 | HHI.NPPN ---
Subjective History of Present Illness 66 year old female with UTI ESRD weakness Review of Systems General Constitutional: Fatigue Objective Data Data 01/10/17 01/11/17 19:00 07:00 Intake Total 720 ml Balance 720 ml Intake Oral 720 ml # Voids 0 # Bowel Movements 0 Vital Signs Date Time Temp Pulse Resp B/P (MAP) Pulse Ox O2 Delivery O2 Flow Rate FiO2 01/10/17 15:51 97.9 81 20 146/64 (91) 96 01/10/17 11:45 97.8 80 20 134/71 (92) 95 01/10/17 10:11 80 01/10/17 08:35 97.3 80 18 130/56 (80) 99 01/10/17 05:53 98.0 88 18 132/63 (86) 98 01/10/17 00:15 98.2 80 18 143/63 (89) 98 01/09/17 23:00 92 01/09/17 21:25 95 01/09/17 20:51 97.7 81 18 115/58 (77) 95 01/09/17 20:00 80 01/09/17 19:26 90 -: 01/09/17 0648 01/10/17 0557 Physical Exam General Appearance: Well Developed Neck Neck Exam: Neck Supple Pulmonary Resp Exam: Clear Bilaterally, Breath Sounds Equal Cardiology CV Exam: Regular Gastrointestinal/Abdomen GI Exam: Soft, Non-Tender, Bowel Sounds Present Extremeties Extremities Exam: Trace Edema Neurologic Neuro Exam: Alert Assessment/Plan Problem List: (1) ESRD (end stage renal disease) on dialysis ICD Codes: N18.6 - End stage renal disease; Z99.2 - Dependence on renal dialysis Plan: Patient is feeling better Hemodialysis done yesterday UF 3 L Dialysis will be on Friday and Friday UTI has been treated Ceftriaxone (2) Diabetes ICD Codes: E11.9 - Type 2 diabetes mellitus without complications Plan: Monitor blood glucose (3) UTI (urinary tract infection) ICD Codes: N39.0 - Urinary tract infection, site not specified Plan: Follow urine cultures (4) Weakness ICD Codes: R53.1 - Weakness Plan: Continue to monitor Problem Qualifiers (1) Diabetes: Bree Villasenor MD Jan 10, 2017 16:05
[2017-01-11] VITALS (7 sets, daily range): BP systolic 112–165; BP diastolic 60–72; PULSE 83–90; RESP 18–20; TEMP 97.2–97.8; O2SAT 96–98
[2017-01-11] MEDS: HEPARIN SODIUM - SQ 10,000 UNITS/ML VIAL SQ SCH (05:50)
[2017-01-11] MEDS: LEVOTHYROXINE SODIUM 75 MCG TAB PO SCH (05:51)
[2017-01-11] MEDS: LEVOTHYROXINE SODIUM 100 MCG TAB PO SCH (05:51)
[2017-01-11] MEDS: SODIUM CHLORIDE 0.9% FLUSH 10 ML FLUSH IV FLUSH SCH (08:00)
[2017-01-11] MEDS: INSULIN ASPART SUPPLEMENTAL SCALE SQ SCH ×2 (08:00→12:00)
[2017-01-11] MEDS: PIOGLITAZONE HCL 45 MG TAB PO SCH (08:55)
[2017-01-11] MEDS: PRAVASTATIN SOD 40 MG TAB PO SCH (08:56)
[2017-01-11] MEDS: DOCUSATE SODIUM 50 MG/SENNA 8.6 MG TAB PO SCH (08:56)
--- NOTE | 2017-01-11 09:48 | HHI.NPPN ---
Subjective History of Present Illness 66 year old female with UTI ESRD weakness Additional Remarks Patient seen during HD, not in distress. Review of Systems General Constitutional: Fatigue Objective Data Data Vital Signs Date Time Temp Pulse Resp B/P (MAP) Pulse Ox O2 Delivery O2 Flow Rate FiO2 01/11/17 09:04 97.2 85 20 162/72 (102) 98 01/11/17 05:02 97.6 89 18 165/71 (102) 98 01/11/17 04:39 90 01/11/17 01:33 97.8 83 18 153/68 (96) 96 01/11/17 00:30 83 01/10/17 21:04 97.7 81 18 161/71 (101) 96 01/10/17 21:00 83 01/10/17 17:20 96 21 01/10/17 15:51 97.9 81 20 146/64 (91) 96 01/10/17 11:45 97.8 80 20 134/71 (92) 95 01/10/17 10:11 80 -: 01/09/17 0648 01/10/17 0557 Physical Exam General Appearance: Well Developed, No Acute Distress, Comfortable Neck Neck Exam: Neck Supple Pulmonary Resp Exam: Clear Bilaterally, Breath Sounds Equal Cardiology CV Exam: Regular Gastrointestinal/Abdomen GI Exam: Soft, Non-Tender, Bowel Sounds Present Extremeties Extremities Exam: Trace Edema Neurologic Neuro Exam: Alert, Awake Psychiatric Psych Exam: Appropriate Responses Assessment/Plan Problem List: (1) ESRD (end stage renal disease) on dialysis ICD Codes: N18.6 - End stage renal disease; Z99.2 - Dependence on renal dialysis Plan: Patient is feeling better Hemodialysis now , remove fluid as tolerated. Dialysis will be on Friday and Friday UTI has been treated. Ceftriaxone (2) Diabetes ICD Codes: E11.9 - Type 2 diabetes mellitus without complications Plan: Monitor blood glucose (3) UTI (urinary tract infection) ICD Codes: N39.0 - Urinary tract infection, site not specified Plan: Follow urine cultures (4) Weakness ICD Codes: R53.1 - Weakness Plan: Continue to monitor Problem Qualifiers (1) Diabetes: Paz Rebolledo MD Jan 11, 2017 09:48
[2017-01-11] MEDS: HEPARIN SODIUM - IV 10,000 UNITS/10 ML VIAL PRN (10:59)
[2017-01-11] MEDS: GENTAMICIN SULFATE (DIALYSIS USE ONLY) 20 MG/2 ML VIAL OTHER PRN (11:00)
[2017-01-11] MEDS: EPOETIN ALFA 10,000 UNITS/ML VIAL IV PUSH PRN (11:00)
[2017-01-11] MEDS ORDERED: cefTRIAXone INJ 1,000 MG in SODIUM CHLORIDE 0.9% INJ 100 ML IV SCH (12:00)
--- NOTE | 2017-01-11 12:02 | HHI.DCPOC ---
Discharge Care Plan Diagnosis: (1) UTI (urinary tract infection) (2) ESRD (end stage renal disease) on dialysis (3) Debility (4) Diabetes (5) Obese Goals to Promote Your Health * To prevent worsening of your condition and complications * To maintain your health at the optimal level Directions to Meet Your Goals Take your medications as prescribed Follow your dietary instruction Follow activity as directed Keep your appointments as scheduled Take your immunizations and boosters as scheduled If your symptoms worsen call your PCP, if no PCP go to Urgent Care Center or Emergency Room Smoking is Dangerous to Your Health. Avoid second hand smoke Call the 24-hour hour crisis hotline for domestic abuse at Ubaldo Mcmullen MD Jan 11, 2017 12:02
--- NOTE | 2017-01-11 12:02 | HHI.DS ---
Discharge Summary Admission Date Jan 08, 2017 at 16:39 Discharge Date: Jan 11, 2017 Admitting Diagnosis ESRD, UTI, WEAKNESS (1) ESRD (end stage renal disease) on dialysis ICD Code: N18.6 - End stage renal disease; Z99.2 - Dependence on renal dialysis Diagnosis: Principal (2) UTI (urinary tract infection) ICD Code: N39.0 - Urinary tract infection, site not specified Diagnosis: Principal (3) Weakness ICD Code: R53.1 - Weakness Diagnosis: Principal (4) Obese ICD Code: E66.9 - Obesity, unspecified Diagnosis: Secondary (5) Hyperlipidemia ICD Code: E78.5 - Hyperlipidemia, unspecified Diagnosis: Secondary (6) Hypothyroidism ICD Code: E03.9 - Hypothyroidism, unspecified Diagnosis: Secondary Procedures None Brief History - From Admission History of present illness from the admitting physician Patient is a 66-year-old female who presents to the emergency department with chief complaint of generalized weakness. Patient states that she fell yesterday while trying to go to dialysis. Therefore she did not go. She has a history of end-stage renal disease and goes to dialysis Friday. She states that because of her fall she did not go to dialysis yesterday. She states that her fall was controlled and she did not hit her head , denies any injury or loss of consciousness. Came to the emergency department today because she was unable to get out of her recliner this morning. Denies any chest pain or shortness of breath, denies any headaches, denies any nausea, vomiting or diarrhea. She still does produce some urine has not noticed any burning frequency or discharge but was found to have a urinary tract infection here in the emergency department CBC/BMP: 01/09/17 0648 01/10/17 0557 Significant Findings Laboratory Tests Test 01/08/17 12:35 01/08/17 17:35 01/08/17 21:09 01/09/17 06:48 Urine Protein 300 OR GREATER mg/dL Urine RBC 10-14 /hpf (0-3) Urine WBC INNUM /hpf (0-5) Urine WBC Clumps MANY (NONE) Urine Bacteria RARE /hpf (NONE) Total Creatine Kinase 25 U/L (26-192) White Blood Count 11.1 TH/MM3 (4.0-11.0) Red Blood Count 3.17 MIL/MM3 (4.00-5.30) Hemoglobin 9.1 GM/DL (11.6-15.3) Hematocrit 28.8 % (35.0-46.0) Mean Corpuscular Hemoglobin Concent 31.4 % (32.0-36.0) Red Cell Distribution Width 20.8 % (11.6-17.2) Platelet Count 483 TH/MM3 (150-450) Mean Platelet Volume 6.9 FL (7.0-11.0) Neutrophils (%) (Auto) 81.5 % (16.0-70.0) Lymphocytes (%) (Auto) 8.0 % (9.0-44.0) Monocytes (%) (Auto) 9.9 % (0.0-8.0) Neutrophils # (Auto) 9.0 TH/MM3 (1.8-7.7) Lymphocytes # (Auto) 0.9 TH/MM3 (1.0-4.8) Monocytes # (Auto) 1.1 TH/MM3 (0-0.9) Blood Urea Nitrogen 108 MG/DL (7-18) Creatinine 6.91 MG/DL (0.50-1.00) Random Glucose 41 MG/DL (74-106) Albumin 2.1 GM/DL (3.4-5.0) Phosphorus Level 8.0 MG/DL (2.5-4.9) Sodium Level 133 MEQ/L (136-145) Carbon Dioxide Level 16.5 MEQ/L (21.0-32.0) Estimat Glomerular Filtration Rate 6 ML/MIN (>89) Test 01/09/17 09:00 01/10/17 05:57 Random Glucose 147 MG/DL (74-106) Imaging Last Impressions Pelvis X-Ray 01/08/17 0000 Signed Impressions: Service Date/Time: Sunday, January 08, 2017 13:00 - CONCLUSION: 1. Post surgical changes of multiple hemoclips in fine surgical mario in the pelvis. Right-sided double-J stent. 2. Otherwise negative. No acute fracture. Suleiman Early MD Chest X-Ray 01/08/17 0000 Signed Impressions: Service Date/Time: Sunday, January 08, 2017 09:49 - CONCLUSION: Negative for failure or infiltrate. [id number] and dialysis catheter in good position. Freedom Juarez MD FACR PE at Discharge GENERAL: Morbidly obese female, very weak CARDIOVASCULAR: Normal rate and regular rhythm without murmurs, gallops, or rubs. RESPIRATORY: Good respiratory efforts. Breath sounds equal and clear to auscultation bilaterally. GASTROINTESTINAL: Abdomen soft, non-tender, non-distended. Normal active bowel sounds MUSCULOSKELETAL: Extremities without cyanosis, or edema. NEURO: Alert & Oriented x4 to person, place, time, situation. Moves all ext x4 PSYCH: Appropriate mood and affect. Pt update on day of discharge Patient reports she is feeling overall better. Anxious to go home. Hospital Course 66-year-old female presented with worsening generalized weakness and UTI. Evaluation and treatment course detailed below: End-stage renal disease on HD dialysis on Friday, , and Friday - Nephrology followed the patient and she underwent hemodialysis as scheduled. - Continue hemodialysis outpatient. Generalized weakness: It appears this has been ongoing and has gotten worse. This may be related to UTI and the patient missing dialysis. Physical therapy recommended SNF. 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 He did request home health with physical therapy. Patient is discharge home with home health and physical therapy. Urinary tract infection -Urine is growing Klebsiella and strep viridans. -Patient treated with IV Rocephin. She is discharged on cefuroxime to complete the course of treatment. Diabetes mellitus continue on sliding scale coverage with Accu-Cheks before meals and at bedtime continue home medications. Patient can resume home dose hypoglycemic agents. Osteoarthritis of the right hip: Patient advised to follow up outpatient with orthopedics. She was counseled on weight loss. Pain medication as needed. Hypothyroidism - On Synthroid. TSH okay. Continue same dose Morbid obesity: We discussed benefits of weight loss with the patient. Pt Condition on Discharge: Stable Discharge Disposition: Disch w/ Home Health Serv Discharge Time: > 30 minutes Discharge Instructions DIET: Follow Instructions for: Renal Failure Diet Activities you can perform: Regular-No Restrictions Other Activity Instructions: Use assistance New Medications: Cefuroxime (Cefuroxime) 500 Mg Tab 500 MG PO BID for Infection, #6 TAB 0 Refills Continued Medications: Glipizide (Glipizide) 10 Mg Tab 10 MG PO BIDAC for Blood Sugar Management, #60 TAB 0 Refills Take 30 minutes before a meal Levothyroxine (Levothyroxine) 175 Mcg Tab 175 MCG PO DAILY for Thyroid, #30 TAB 0 Refills Pioglitazone (Actos) 45 Mg Tab 45 MG PO DAILY for Blood Sugar Management, #30 TAB 0 Refills Simvastatin (Simvastatin) 20 Mg Tab 20 MG PO DAILY for Cholesterol Management, #30 TAB 0 Refills Ubaldo Mcmullen MD Jan 11, 2017 12:02
[2017-01-11] MEDS ORDERED: CEFU1TAB20 PO (12:17)
== END 2017-01-11 14:35 | disposition home health service (06) | DRG 689 ==
LOC: NEPC 08:42 → NEDA 16:39 → N05A 19:18
PROVIDERS: ADMIT Family Medicine; ATTEND Family Medicine
PROC: 5A1D70Z Performance of Urinary Filtration, Intermittent, Less than 6 Hours Per Day (ICD-10-PCS; principal; 2017-01-09)
DX: N39.0 Urinary tract infection, site not specified (principal); N18.6 End stage renal disease; I12.0 Hypertensive chronic kidney disease with stage 5 chronic kidney disease or end stage renal disease; E11.22 Type 2 diabetes mellitus with diabetic chronic kidney disease; R53.1 Weakness; Z99.2 Dependence on renal dialysis; W19.XXXA Unspecified fall, initial encounter; E78.5 Hyperlipidemia, unspecified; E03.9 Hypothyroidism, unspecified; Z83.3 Family history of diabetes mellitus; Z82.49 Family history of ischemic heart disease and other diseases of the circulatory system; E66.01 Morbid (severe) obesity due to excess calories; M16.11 Unilateral primary osteoarthritis, right hip; Z91.15 Patient's noncompliance with renal dialysis
CPT/HCPCS: 71010; 72170; 76937; 80053; 81001; 82550; 82947; 82948; 83036; 83735; 84100; 84439; 84443; 84484; 85025; 85610; 85730; 87040; 87077; 87086; 87186; 90935; 93005; 96372; 96374; 96375; J0696; J1580; J1644; J1815; J7030; Q4081